=== PATIENT | female | born 1930 | race Caucasian/White ===

== ENCOUNTER 2017-10-24 00:42 | Inpatient (IN) | payer MEDICARE ==
[~2017-10-24] VITALS: Ht 139.7 cm; Wt 59.0 kg
--- NOTE | ~2017-10-24 | EC ---
PATIENT:BELKYS DAY DATE OF SERVICE: 10/25/17 SEX: F MEDICAL RECORD: [id number] DATE OF : 34 LOCATION:[id number] AGE OF PATIENT: 86 ADMISSION DATE: 10/25/17 REFERRING PHYSICIAN: INTERPRETING PHYSICIAN: MYRANDA MCCARTY MD ECHOCARDIOGRAM REPORT ECHO CHARGES 4 ECHO COMPLETE CLINICAL DIAGNOSIS: EMBOLIC CVA ECHOCARDIOGRAPHIC MEASUREMENTS (adult normal given) AC root (d.<3.7cm) 3.3 cm LV Septum d (<1.2 cm> 1.2 cm Valve Excursion 1.5 cm LV Septum (systole) 1.5 cm Left Atria (s.<4.0cm> 2.7 cm LVPW d(<1.2cm) 1.2 cm RV (d.<2.3cm) 2.5 cm LVPW (sytole) 1.7 cm LV diastole(<5.6CM) 4.1 cm MV E-F(>70mm/sec) cm LV systole 2.7 cm LVOT Diameter 1.2 cm MV exc.(>10mm) cm Est.ejection fraction (50-75%) % Pericardial Effusion N DOPPLER: LVIT cm/sec A 100 cm/sec E 64.0 cm/sec LA cm/sec RVSP 35 mmHg LVOT 124 cm/sec AOP1/2T 434 m/s Asc. Ao 147 cm/sec RVOT 123 cm/sec RA cm/sec PA 125 cm/sec AV Gradient Peak 8.59 mmHg AV Mean 4.66 mmHg AV Area 1.1 cm MV Gradient Peak 5.94 mmHg MV Mean 2.01 mmHg MV Area cm COMMENTS: Product Support Sales Representative: Pilar THOMAS Architectural Administrative Assistant: 2 Dr. Ahumada TAPE# PACS DATE OF SERVICE: 10/25/2017 PROCEDURE: Echocardiogram. FINDINGS: 1. Left ventricular chamber size is within normal limits. Left ventricular systolic function is normal. Overall ejection fraction estimated at 55%. 2. Left atrium, right atrium, and right ventricular chamber sizes are within normal limits. 3. Valvular structures have normal structure and motion. ECHOCARDIOGRAM REPORT [id number] BELKYS DAY 4. Doppler interrogation reveals mild aortic insufficiency, mild mitral regurgitation, mild tricuspid regurgitation, no other valvular insufficiency or stenosis. 5. No evidence of pericardial effusion or left ventricular thrombus. 6. No cardiac source of neurologic emboli. TRANSINT:[id number] Voice Confirmation ID: [id number] DOCUMENT ID: [id number] MYRANDA MCCARTY MD CC: [id number] DICTATION DATE: 10/25/17 1315 ANALOG IC DESIGN ARCHITECT: 10/25/17 1322 ADM IN [facility] [address] [id number]
[2017-10-24 01:23] LABS: BASOPHILS 0.1 % (0-2); EOSINOPHILS 0 % (0-7); HEMOGLOBIN 15.3 g/dL (12-16); IMMATURE GRANULOCYTES 0.6 % (0-5); LYMPHOCYTES 8.3 % (15-50); MCHC 34.8 g/dL (31.0-37.0); MCV 94.8 fL (80.0-100.0); MEAN PLATELET VOLUME 9.4 fL (7.4-10.4); MONOCYTES 4.7 % (2-11); NEUTROPHILS 86.3 % (40-80); PLATELET COUNT 316 10x3/uL (130-400); RBC 4.64 10x6/uL (4.00-5.40); RDW 12.5 % (11.5-14.5); WBC 18.2 10x3/uL (4.8-10.8)
[2017-10-24 01:37] LABS: APPEARANCE CLEAR (CLEAR); BILIRUBIN NEGATIVE (NEGATIVE); COLOR YELLOW (YELLOW); GLUCOSE 1000 mg/dL (NEGATIVE); KETONE MODERATE mg/dL (NEGATIVE); NITRITE NEGATIVE (NEGATIVE); PROTEIN 2+ mg/dL (NEGATIVE); SPECIFIC GRAVITY 1.015 (1.005-1.020); UROBILINOGEN NORMAL (NORMAL)
[2017-10-24 01:37] LABS: ANION GAP 15.4 mmol/L (8-16); BILIRUBIN - TOTAL 0.7 mg/dL (0.2-1.3); CALCIUM 9.7 mg/dL (8.5-10.1); CARBON DIOXIDE 30.3 mmol/L (21.0-32.0); POTASSIUM - SERUM 3.7 mmol/L (3.5-5.1); PROTEIN - SERUM 8.6 g/dL (6.4-8.2)
[2017-10-24 01:39] LABS: BACTERIA FEW /hpf (NONE SEEN); EPITHELIAL CELLS 0-5 /hpf (0-5); RED CELLS - URINE 0-5 /hpf (0-5); WHITE CELLS - URINE 0-5 /hpf (0-5)
[2017-10-24 02:19] LABS: CKMB 4.4 U/L (0.0-3.6); CREATINE KINASE 434 UL (21-215); TROPONIN-I < 0.017 ng/mL (0.000-0.060)
[2017-10-24 08:34] LABS: CKMB 5.2 U/L (0.0-3.6); TROPONIN-I < 0.017 ng/mL (0.000-0.060)
[2017-10-24 08:35] LABS: CREATINE KINASE 669 UL (21-215)
[2017-10-24] MEDS ORDERED: NORVASC5 MG PO (08:51)
[2017-10-24] MEDS ORDERED: GLUCOPHAGE500 MG PO (08:52)
[2017-10-24 09:07] VITALS: BP 190/110; BMI 30.2
[2017-10-24 12:31] VITALS: BP 190/70
[2017-10-24 15:05] LABS: CKMB 3.5 U/L (0.0-3.6)
[2017-10-24 15:12] LABS: CREATINE KINASE 428 UL (21-215)
[2017-10-24 16:19] VITALS: BP 167/87
[2017-10-24 21:25] LABS: CHOL - HDL RATIO 2.9 ratio (2.3-4.1); CHOLESTEROL, TOTAL 170 mg/dL (0-200); CKMB 3.1 U/L (0.0-3.6); HDL CHOLESTEROL 58 mg/dL (32-96); LDL CHOLESTEROL 88 mg/dL (0-100); LDL-HDL RATIO 1.5 ratio (1.5-3.5); TRIGLYCERIDE 123 mg/dL (30-200); TROPONIN-I 0.025 ng/mL (0.000-0.060)
[2017-10-24 21:27] LABS: CREATINE KINASE 264 UL (21-215)
[2017-10-24 21:39] VITALS: BP 170/81
[2017-10-25 00:15] VITALS: BP 166/78
[2017-10-25 04:00] VITALS: BP 194/78
[2017-10-25 05:49] LABS: BASOPHILS 0 % (0-2); EOSINOPHILS 0 % (0-7); HEMATOCRIT 45.9 % (36.0-48.0); HEMOGLOBIN 15.7 g/dL (12-16); IMMATURE GRANULOCYTES 0.5 % (0-5); LYMPHOCYTES 8.4 % (15-50); MCH 32.7 pg (26.0-34.0); MCHC 34.2 g/dL (31.0-37.0); MCV 95.6 fL (80.0-100.0); MEAN PLATELET VOLUME 9.5 fL (7.4-10.4); MONOCYTES 8.8 % (2-11); NEUTROPHILS 82.3 % (40-80); PLATELET COUNT 327 10x3/uL (130-400); RDW 12.5 % (11.5-14.5)
[2017-10-25 06:09] LABS: ANION GAP 11.7 mmol/L (8-16); CALCIUM 9.5 mg/dL (8.5-10.1); CARBON DIOXIDE 31.1 mmol/L (21.0-32.0); CREATININE - SERUM 1.2 mg/dL (0.6-1.3); POTASSIUM - SERUM 3.8 mmol/L (3.5-5.1)
[2017-10-25 08:54] VITALS: BP 196/75
[2017-10-25 11:02] VITALS: Ht 139.7 cm; Wt 59.0 kg
[2017-10-25 11:42] VITALS: BP 167/83
[2017-10-25 16:30] VITALS: BP 187/70
[2017-10-25 23:18] VITALS: BP 187/74
[2017-10-26 02:11] VITALS: BP 156/66
[2017-10-26 04:56] VITALS: BP 170/62
[2017-10-26 09:24] VITALS: BP 160/66
[2017-10-26 12:48] VITALS: BP 130/56
[2017-10-26 16:10] VITALS: BP 151/70
[2017-10-26 22:20] VITALS: BP 159/64
[2017-10-27 01:15] VITALS: BP 121/73
[2017-10-27 05:05] VITALS: BP 149/67
[2017-10-27 07:56] VITALS: BP 146/90
[2017-10-27 12:02] VITALS: BP 159/66
[2017-10-27 16:16] VITALS: BP 121/56
== END 2017-10-27 16:46 | disposition hospice, inpatient (51) | DRG 64 ==
LOC: D.ER 00:42 → EDBD 00:42 → OBSVTIME 06:52 → D.MS 06:52
PROVIDERS: Family Medicine; Internal Medicine Nephrology
DX: I63.9 Cerebral infarction, unspecified (principal); G93.40 Encephalopathy, unspecified; R13.10 Dysphagia, unspecified; R50.9 Fever, unspecified; I10 Essential (primary) hypertension; E11.9 Type 2 diabetes mellitus without complications; F03.90 Unspecified dementia, unspecified severity, without behavioral disturbance, psychotic disturbance, mood disturbance, and anxiety; Z66 Do not resuscitate; Z51.5 Encounter for palliative care

== ENCOUNTER 2017-10-27 16:56 | Inpatient (IN) | payer OTHER ==
[~2017-10-27] VITALS: Ht 139.7 cm; Wt 59.1 kg
[~2017-10-27 16:56] MED LIST: GLUCOPHAGE500 MG PO; NORVASC5 MG PO
[2017-10-27 17:33] VITALS: BP 121/56; Ht 139.7 cm; Wt 59.1 kg
[2017-10-27 22:26] VITALS: BP 85/22
== END 2017-10-28 02:17 | DRG 951 ==
LOC: D.MS 16:56
DX: Z51.5 Encounter for palliative care (principal); Z66 Do not resuscitate